=== PATIENT | female | born 1985 | race Native Hawaiian/Other Pacific Islander ===

== ENCOUNTER → 2020-11-16 13:44 | Outpatient (CLI) | payer OTHER, SELFPAY ==
--- NOTE | 2020-11-16 13:44 | CT_ITS ---
PROCEDURE: CT SINUS WO CON CLINICAL HISTORY: sinusitis Pt states she has a lot of problems with snoring COMPARISON: No exams were available for comparison TECHNIQUE: Axial images obtained with sagittal and coronal reformats. All CT scans at the facility use one or more dose reduction, viz: automated exposure control, ma/kV adjustment per patient size (including targeted exams where dose is matched to indication, i.e. head), or iterative reconstruction technique. FINDINGS: There is only minimal mucosal thickening in the ethmoid sinus on the right anteriorly. No sinus air-fluid levels are evident. The maxillary, left ethmoid, frontal, and sphenoid sinuses have an unremarkable appearance. There is mild leftward nasal septal deviation with small bilateral neftali bullosa. The ostiomeatal units are patent. Scattered small bilateral lymph nodes are present within the neck. The orbits have an unremarkable appearance. Unremarkable TMJs. IMPRESSION: 1. Mild leftward nasal septal deviation. Small bilateral neftali bullosa. 2. Minimal mucosal thickening right ethmoid sinus anteriorly otherwise negative CT of the sinuses Dictated by: Jay Gonzalez MD 11/17/2020 05:58 Jay Gonzalez MD in [place] 11/17/2020 05:58
== END ==
PROVIDERS: Visit Provider Otolaryngology
DX: J34.3 Hypertrophy of nasal turbinates (principal); R06.83 Snoring
CPT/HCPCS: 70486

== ENCOUNTER → 2020-11-29 10:31 | Outpatient (CLI) | payer OTHER, SELFPAY | PROVIDERS: Visit Provider Otolaryngology | DX: G47.30 Sleep apnea, unspecified (principal); R06.83 Snoring; J34.3 Hypertrophy of nasal turbinates | CPT/HCPCS: 95806 ==

== ENCOUNTER → 2021-07-11 21:17 | Outpatient (CLI) | payer OTHER, SELFPAY | PROVIDERS: PCP Family Medicine; Visit Provider Nurse Practitioner Family | DX: G47.30 Sleep apnea, unspecified (principal); R06.83 Snoring; R53.83 Other fatigue; R51.9 Headache, unspecified; R40.0 Somnolence | CPT/HCPCS: 95810 ==